=== PATIENT | male | born 1965 | race Caucasian/White ===

== ENCOUNTER 2018-06-01 18:22 | Emergency (ER) | payer MEDICARE, MEDICAID ==
[~2018-06-01] VITALS: Ht 167.6 cm; Wt 83.0 kg
[2018-06-01] MEDS ORDERED: LEVO25TA4 PO (18:34)
[2018-06-01] MEDS ORDERED: SAXA5TAB PO (18:34)
[2018-06-01] MEDS ORDERED: METO-391 PO (18:34)
[2018-06-01] MEDS ORDERED: METF-446 PO (18:34)
[2018-06-01] MEDS ORDERED: GLIP5TAB11 PO (18:34)
[2018-06-01] MEDS ORDERED: BENZ1TAB10 PO (18:34)
[2018-06-01] MEDS ORDERED: RISP3TAB44 PO (18:34)
[2018-06-01] MEDS ORDERED: SIMV40TA5 PO (18:35)
[2018-06-01] MEDS ORDERED: TRAZ150T79 PO (18:35)
[2018-06-01] MEDS ORDERED: QUET400T3 PO (18:35)
[2018-06-01 18:39] LABS: GLUCOSE,POINT OF CARE 231 MG/DL (70-110)
[2018-06-01] MEDS ORDERED: LORazepam 1 MG TABLET PO ONE (19:30)
[2018-06-01] MEDS ORDERED: DiphenhydrAMINE HCL 50 MG CAPSULE PO ONE (20:00)
[2018-06-01] MEDS ORDERED: HALOPERIDOL 5 MG TABLET PO ONE (20:00)
[2018-06-01] MEDS ORDERED: MetFORMIN HCL 500 MG TABLET PO ONE (20:00)
[2018-06-01 20:39] VITALS: BP 148/80
== END 2018-06-01 20:56 | disposition home or self-care (01) ==
LOC: EMS 18:23
DX: E11.65 Type 2 diabetes mellitus with hyperglycemia (principal); F20.9 Schizophrenia, unspecified; I10 Essential (primary) hypertension; E78.00 Pure hypercholesterolemia, unspecified; F31.9 Bipolar disorder, unspecified; F41.9 Anxiety disorder, unspecified; F17.210 Nicotine dependence, cigarettes, uncomplicated; Z76.0 Encounter for issue of repeat prescription; Z88.8 Allergy status to other drugs, medicaments and biological substances; Z79.84 Long term (current) use of oral hypoglycemic drugs

== ENCOUNTER 2022-04-17 18:00 | Emergency (ER) | payer MEDICARE, MEDICAID ==
[~2022-04-17] VITALS: Ht 167.6 cm; Wt 79.5 kg
[~2022-04-17 18:00] MED LIST: BENZ1TAB96 PO; GLIP5TAB11 PO; LEVO25TA4 PO; METF-446 PO; METO-391 PO; QUET400T5 PO; RISP3TAB44 PO; SAXA5TAB PO; SIMV-46 PO; TRAZ150T79 PO
[2022-04-17 19:28] LABS: EOSINOPHILS % (AUTO) 2.4 % (1.0-6.0); HEMATOCRIT 31.6 % (41-53); HEMOGLOBIN 10.6 g/dL (13.5-17.5); LYMPHOCYTES # (AUTO) 0.7 K/uL (1.0-4.8); LYMPHOCYTES % (AUTO) 8.6 % (22.0-44.0); MEAN CORPUSCULAR HEMOGLOBIN 29.9 pg (26.0-34.0); MEAN CORPUSCULAR HGB CONC 33.4 G/dL (31.0-37.0); MEAN CORPUSCULAR VOLUME 90 fL (80-100); MONOCYTES # (AUTO) 0.9 K/uL (0.1-1.0); MONOCYTES % (AUTO) 10.5 % (2.0-9.0); NEUTROPHILS # (AUTO) 6.5 K/uL (1.8-7.7); NEUTROPHILS % (AUTO) 77.5 % (40.0-70.0); PLATELET COUNT (AUTO) 275 K/uL (150-450); RED BLOOD CELL COUNT(AUTO) 3.53 MIL/uL (4.50-5.90)
[2022-04-17 19:35] LABS: ANION GAP 4 mmol/L (8-16); CALCIUM, TOTAL 8.7 mg/dL (8.8-10.5); CARBON DIOXIDE 27 mmol/L (22-29); CHLORIDE 106 mmol/L (98-107); CREATININE 1.27 mg/dL (0.60-1.30); GLUCOSE,RANDOM 89 mg/dL (70-110); POTASSIUM 3.9 mmol/L (3.5-5.1); SODIUM SERUM 137 mmol/L (136-145); UREA NITROGEN, BLOOD 14 mg/dL (7-18)
[2022-04-17 19:36] LABS: GLOMERULAR FILTR. RATE CALC 58 mL/min (>60)
[2022-04-17 19:41] LABS: ALANINE AMINOTRANSFERASE 16 U/L (12-78); ALBUMIN 3.4 g/dL (3.4-5.0); ALKALINE PHOSPHATASE 86 U/L (46-116); ASPARTATE AMINOTRANSFERASE 11 U/L (15-37); BILIRUBIN,TOTAL 0.1 mg/dL (0.1-1.0); TOTAL PROTEIN, SERUM 6.6 g/dL (6.4-8.2)
[2022-04-17 20:39] LABS: APPEARANCE,URINE CLEAR (CLEAR); BILIRUBIN,URINE NEGATIVE (NEGATIVE); GLUCOSE, URINE (UA) NEGATIVE (NEGATIVE); KETONES,URINE NEGATIVE (NEGATIVE); LEUKOCYTE ESTERASE ,URINE NEGATIVE (NEGATIVE); NITRATE,URINE NEGATIVE (NEGATIVE); OCCULT BLOOD,URINE NEGATIVE (NEGATIVE); PROTEIN,URINE NEGATIVE (NEGATIVE); SPECIFIC GRAVITIY, URINE 1.006 (1.003-1.030); UROBILINOGEN,URINE <=1.0 mg/dL (<=1.0)
[2022-04-17 20:45] LABS: AMPHET/METH SCREEN,URINE NEGATIVE (NEGATIVE); BARBITURATE SCREEN, URINE NEGATIVE (NEGATIVE); BENZODIAZEPINES SCREEN,URINE NEGATIVE (NEGATIVE); CANNABINOID SCREEN,URINE NEGATIVE (NEGATIVE); COCAINE SCREEN,URINE NEGATIVE (NEGATIVE); METHADONE SCREEN, URINE NEGATIVE (NEGATIVE); OPIATE SCREEN,URINE NEGATIVE (NEGATIVE); PHENCYCLIDINE SCREEN,URINE NEGATIVE (NEGATIVE)
[2022-04-17 20:46] LABS: BACTERIA,URINE None Seen /HPF (None Seen); RBC,URINE None Seen /HPF (0-2); SQUAMOUS EPITHELIAL CELL,UR Few /LPF (None Seen); WBC,URINE None Seen /HPF (0-5)
[2022-04-17 21:14] VITALS: BP 128/72
[2022-04-17] MEDS ORDERED: SODIUM CHLORIDE 0.9% 500 ML IV ONE (21:15)
== END 2022-04-17 21:30 | disposition home or self-care (01) ==
LOC: EMS 18:02
DX: E11.649 Type 2 diabetes mellitus with hypoglycemia without coma (principal); R55 Syncope and collapse; F41.9 Anxiety disorder, unspecified; F31.9 Bipolar disorder, unspecified; E78.00 Pure hypercholesterolemia, unspecified; I10 Essential (primary) hypertension; F20.9 Schizophrenia, unspecified; G31.84 Mild cognitive impairment of uncertain or unknown etiology; F17.210 Nicotine dependence, cigarettes, uncomplicated; Z86.79 Personal history of other diseases of the circulatory system; Z88.8 Allergy status to other drugs, medicaments and biological substances
CPT/HCPCS: 99284; 80053; 82962; 84484; 85025; 36415; 93005; 80307; 81001; G0480; J7040

== ENCOUNTER 2025-06-23 20:49 | Inpatient (IN) | payer MEDICARE, OTHER ==
[~2025-06-23] VITALS: Ht 170.2 cm; Wt 79.2 kg
[~2025-06-23 20:49] MED LIST changes: +BENZ-247 PO; -BENZ1TAB96 PO; -GLIP5TAB11 PO; +GLIP5TAB15 PO
[2025-06-23] MEDS ORDERED: 0.9% SODIUM CHLORIDE 10 ML SYRINGE IVP PRN (21:15)
[2025-06-23 21:34] LABS: PLATELET COUNT (AUTO) 297 K/uL (150-450); RED BLOOD CELL COUNT(AUTO) 4.78 MIL/uL (4.50-5.90); RED CELL DISTRIBUTION WIDTH 15.1 % (11.5-14.5); WHITE BLOOD COUNT (AUTO) 12.9 K/uL (4.5-11.0)
[2025-06-23 21:43] LABS: CALCIUM, TOTAL 9.0 mg/dL (8.8-10.5); CREATININE 1.51 mg/dL (0.60-1.30); GLOMERULAR FILTR. RATE CALC 47 mL/min (>60); GLUCOSE,RANDOM 319 mg/dL (70-110); SODIUM SERUM 130 mmol/L (136-145); UREA NITROGEN, BLOOD 27 mg/dL (7-18)
[2025-06-23 21:52] LABS: TROPONIN I-HIGH SENSITIVITY 5 ng/L (<76)
[2025-06-23] MEDS: ACETAMINOPHEN 1000 MG/ISO-OSM 100 ML IV ONE (21:53)
[2025-06-23] MEDS: SODIUM CHLORIDE 0.9% 2,100 ML IV ONE (21:53)
[2025-06-23 21:57] LABS: LACTIC ACID 2.7 mmol/L (0.4-2.0)
[2025-06-23 22:02] LABS: ASPARTATE AMINOTRANSFERASE 13 U/L (15-37); CREATINE KINASE, TOTAL ONLY 88 U/L (39-308); TOTAL PROTEIN, SERUM 7.3 g/dL (6.4-8.2)
[2025-06-23] MEDS: CefTRIAXone 1 GM/DEXTROSE 50 ML IV ONE (23:01)
[2025-06-23] MEDS: NICOTINE 14 MG/24 HOUR PATCH TD ONE (23:01)
[2025-06-23 23:05] LABS: COVID AG,FIA SOURCE NASAL SWAB
[2025-06-23 23:08] LABS: APPEARANCE,URINE CLEAR (CLEAR); GLUCOSE, URINE (UA) >=1000 mg/dL (NEGATIVE); LEUKOCYTE ESTERASE ,URINE NEGATIVE (NEGATIVE); NITRATE,URINE NEGATIVE (NEGATIVE); OCCULT BLOOD,URINE NEGATIVE (NEGATIVE); SPECIFIC GRAVITIY, URINE 1.025 (1.003-1.030)
[2025-06-23 23:13] LABS: SARS-COV2 (COVID) ANTIGEN,FIA Negative (Negative)
[2025-06-23 23:15] LABS: INFLUENZA TYPE A NEGATIVE FOR TYPE A (NEGATIVE); INFLUENZA TYPE B NEGATIVE FOR TYPE B (NEGATIVE)
[2025-06-23] MEDS ORDERED: HYDROCODONE/ACETAMINOPHEN 5-325 MG TABLET PO PRN (23:15)
[2025-06-23] MEDS: *CLINICAL-LEVOFLOXACIN IVPB DOSING CLINICAL ONE (23:15)
[2025-06-23] MEDS ORDERED: ONDANSETRON HCL 4 MG/2 ML VIAL IVP PRN (23:15)
[2025-06-23] MEDS ORDERED: MAGNESIUM HYDROXIDE SUSPENSION 30 ML UDCUP PO PRN (23:15)
[2025-06-23] MEDS ORDERED: MORPHINE SULFATE 4 MG/ML SYRINGE IVP PRN (23:15)
[2025-06-23] MEDS ORDERED: BISACODYL 10 MG RECTAL RECTAL SUPPOSITORY PR PRN (23:15)
[2025-06-23 23:27] LABS: SQUAMOUS EPITHELIAL CELL,UR Rare /LPF (None Seen)
[2025-06-23] MEDS: HEPARIN SODIUM,PORCINE 5,000 UNITS/ML VIAL SQ SCH (23:28)
[2025-06-23] MEDS ORDERED: DEXTROSE 50%-WATER 25 GM/50 ML SYRINGE IVP PRN (23:30)
[2025-06-24] MEDS: KETOROLAC TROMETHAMINE 30 MG/ML VIAL IVP ONE (01:03)
[2025-06-24] MEDS: SODIUM CHLORIDE 0.9% 1,000 ML IV ONE ×3 (01:03→14:08)
[2025-06-24] MEDS: LEVOFLOXACIN 750 MG/D5% WATER 150 ML IV SCH (03:11)
[2025-06-24] MEDS: SODIUM CHLORIDE 0.9% 500 ML IV ONE (04:10)
[2025-06-24] MEDS: PHENYLEPHRINE 200 MG/D5%-WATER 250 ML IV PRN (05:25)
[2025-06-24 06:55] LABS: PLATELET COUNT (AUTO) 270 K/uL (150-450); RED BLOOD CELL COUNT(AUTO) 4.25 MIL/uL (4.50-5.90); RED CELL DISTRIBUTION WIDTH 15.0 % (11.5-14.5); WHITE BLOOD COUNT (AUTO) 13.8 K/uL (4.5-11.0)
[2025-06-24 07:01] LABS: CALCIUM, TOTAL 7.5 mg/dL (8.8-10.5); CREATININE 1.29 mg/dL (0.60-1.30); GLOMERULAR FILTR. RATE CALC 57.0 mL/min (>60); GLUCOSE,RANDOM 281.0 mg/dL (70-110); SODIUM SERUM 137.0 mmol/L (136-145); UREA NITROGEN, BLOOD 24.0 mg/dL (7-18)
[2025-06-24] MEDS: LEVOTHYROXINE SODIUM 25 MCG TABLET PO SCH (07:56)
[2025-06-24] MEDS: DOCUSATE SODIUM 100 MG CAPSULE PO SCH (08:41)
[2025-06-24] MEDS: INSULIN LISPRO 100 UNITS/ML SQ PRN (09:14)
[2025-06-24 09:31] LABS: GLUCOMETER DEV NAME(LOC) ER.7; GLUCOSE,POINT OF CARE 263 MG/DL (70-110)
[2025-06-24] MEDS: PANTOPRAZOLE SODIUM 40 MG DR TABLET PO SCH (09:39)
[2025-06-24 09:48] VITALS: BP 125/57; PULSE 104; RESP 20; TEMP 97.5; O2SAT 100
[2025-06-24 12:00] VITALS: BP 122/72; PULSE 103; PULSE 105; RESP 21; TEMP 98; O2SAT 100
[2025-06-24 12:01] LABS: GLUCOMETER DEV NAME(LOC) ICU.S7; GLUCOSE,POINT OF CARE 228 MG/DL (70-110)
[2025-06-24] MEDS ORDERED: FERR325T27 PO (12:09)
[2025-06-24] MEDS ORDERED: CARV3 PO (12:09)
[2025-06-24] MEDS ORDERED: KETO15CR2 TP (12:09)
[2025-06-24] MEDS ORDERED: PANT-31 PO (12:09)
[2025-06-24] MEDS ORDERED: TRAZ150T80 PO (12:09)
[2025-06-24] MEDS ORDERED: CHLO50TA71 PO (12:09)
[2025-06-24] MEDS ORDERED: OFLO5DRO49 OS (12:09)
[2025-06-24] MEDS ORDERED: METF-1211 PO (12:09)
[2025-06-24] MEDS ORDERED: FLUV50 PO (12:09)
[2025-06-24] MEDS ORDERED: MULT-1203 PO (12:34)
[2025-06-24] MEDS ORDERED: LINA5TAB PO (12:34)
[2025-06-24] MEDS ORDERED: DAPA5TAB PO (12:34)
[2025-06-24] MEDS ORDERED: CILO100T3 PO (12:34)
[2025-06-24] MEDS ORDERED: ATOR10TA PO (12:34)
[2025-06-24] MEDS ORDERED: DOCU-385 PO (12:34)
[2025-06-24] MEDS ORDERED: ASPI-1450 PO (12:34)
[2025-06-24] MEDS ORDERED: LISI-892 PO (12:34)
[2025-06-24] MEDS ORDERED: ERGO500054 PO (12:34)
[2025-06-24] MEDS ORDERED: ICOS1CAP PO (12:34)
[2025-06-24] MEDS ORDERED: PANT20TA18 PO (13:36)
[2025-06-24 16:00] VITALS: BP 122/73; PULSE 109; RESP 11; TEMP 97.9; O2SAT 96
[2025-06-24 17:25] LABS: GLUCOMETER DEV NAME(LOC) ICU.S7; GLUCOSE,POINT OF CARE 160 MG/DL (70-110)
[2025-06-24 18:30] LABS: C.DIFF GDH ANTIGEN, Stool Negative (Negative); C.DIFF TOXINS A&B, Stool Negative (Negative)
[2025-06-24 20:00] VITALS: BP 136/101; PULSE 110; RESP 15; TEMP 98.7; O2SAT 96
[2025-06-24] MEDS ORDERED: SIMVASTATIN 40 MG TABLET PO SCH (21:00)
[2025-06-24] MEDS: ZOLPIDEM TARTRATE 5 MG TABLET PO PRN (21:32)
[2025-06-24] MEDS: SIMVASTATIN 20 MG TABLET PO SCH (21:32)
[2025-06-24 21:56] LABS: GLUCOMETER DEV NAME(LOC) ICU.S7; GLUCOSE,POINT OF CARE 151 MG/DL (70-110)
[2025-06-25] VITALS (9 sets, daily range): BP systolic 130–151; BP diastolic 71–95; PULSE 100–120; RESP 12–18; TEMP 97.8–98.5; O2SAT 93–100
[2025-06-25] MEDS: LEVOFLOXACIN 750 MG/D5% WATER 150 ML IV SCH (05:43)
[2025-06-25 06:14] LABS: PLATELET COUNT (AUTO) 248 K/uL (150-450); RED BLOOD CELL COUNT(AUTO) 4.39 MIL/uL (4.50-5.90); RED CELL DISTRIBUTION WIDTH 15.2 % (11.5-14.5); WHITE BLOOD COUNT (AUTO) 10.7 K/uL (4.5-11.0)
[2025-06-25 06:19] LABS: CALCIUM, TOTAL 8.5 mg/dL (8.8-10.5); CREATININE 0.89 mg/dL (0.60-1.30); GLOMERULAR FILTR. RATE CALC > 60 mL/min (>60); GLUCOSE,RANDOM 127 mg/dL (70-110); SODIUM SERUM 138 mmol/L (136-145); UREA NITROGEN, BLOOD 12 mg/dL (7-18)
[2025-06-25] MEDS ORDERED: SODIUM CHLORIDE 0.9% 250 ML IV ONE (08:10)
[2025-06-25] MEDS: NICOTINE 21 MG/24 HOUR PATCH TD SCH (08:18)
[2025-06-25 11:45] LABS: GLUCOMETER DEV NAME(LOC) 5S.2E; GLUCOSE,POINT OF CARE 264 MG/DL (70-110)
[2025-06-25 17:56] LABS: GLUCOMETER DEV NAME(LOC) 5S.2E; GLUCOSE,POINT OF CARE 259 MG/DL (70-110)
[2025-06-25 22:31] LABS: GLUCOMETER DEV NAME(LOC) 5N.2C; GLUCOSE,POINT OF CARE 269 MG/DL (70-110)
[2025-06-26] VITALS (11 sets, daily range): BP systolic 117–161; BP diastolic 78–99; PULSE 93–110; RESP 18–19; TEMP 97.7–99; O2SAT 92–98
[2025-06-26] MEDS ORDERED: SODIUM CHLORIDE 0.9% 250 ML IV ONE (05:18)
[2025-06-26 05:55] LABS: GLUCOMETER DEV NAME(LOC) 5N.2C; GLUCOSE,POINT OF CARE 290 MG/DL (70-110)
[2025-06-26 06:20] LABS: PLATELET COUNT (AUTO) 269 K/uL (150-450); RED BLOOD CELL COUNT(AUTO) 4.36 MIL/uL (4.50-5.90); RED CELL DISTRIBUTION WIDTH 14.9 % (11.5-14.5); WHITE BLOOD COUNT (AUTO) 7.7 K/uL (4.5-11.0)
[2025-06-26 06:43] LABS: CALCIUM, TOTAL 9.0 mg/dL (8.8-10.5); CREATININE 0.88 mg/dL (0.60-1.30); GLOMERULAR FILTR. RATE CALC > 60 mL/min (>60); GLUCOSE,RANDOM 294 mg/dL (70-110); SODIUM SERUM 134 mmol/L (136-145); UREA NITROGEN, BLOOD 12 mg/dL (7-18)
[2025-06-26 13:26] LABS: GLUCOMETER DEV NAME(LOC) 5S.2E; GLUCOSE,POINT OF CARE 270 MG/DL (70-110)
[2025-06-26 19:05] LABS: GLUCOMETER DEV NAME(LOC) 5N.2C; GLUCOSE,POINT OF CARE 265 MG/DL (70-110)
[2025-06-26 22:11] LABS: GLUCOMETER DEV NAME(LOC) 5S.2E; GLUCOSE,POINT OF CARE 304 MG/DL (70-110)
[2025-06-27] VITALS (8 sets, daily range): BP systolic 130–157; BP diastolic 85–106; PULSE 101–116; RESP 18–19; TEMP 97.7–98.4; O2SAT 96–99
[2025-06-27 06:09] LABS: PLATELET COUNT (AUTO) 308 K/uL (150-450); RED BLOOD CELL COUNT(AUTO) 4.51 MIL/uL (4.50-5.90); RED CELL DISTRIBUTION WIDTH 14.8 % (11.5-14.5); WHITE BLOOD COUNT (AUTO) 8.1 K/uL (4.5-11.0)
[2025-06-27 06:47] LABS: CALCIUM, TOTAL 9.2 mg/dL (8.8-10.5); CREATININE 1.00 mg/dL (0.60-1.30); GLOMERULAR FILTR. RATE CALC > 60 mL/min (>60); GLUCOSE,RANDOM 349 mg/dL (70-110); SODIUM SERUM 132 mmol/L (136-145); UREA NITROGEN, BLOOD 13 mg/dL (7-18)
[2025-06-27 17:26] LABS: GLUCOMETER DEV NAME(LOC) 5S.2E; GLUCOSE,POINT OF CARE 355 MG/DL (70-110)
[2025-06-27 17:31] LABS: GLUCOMETER DEV NAME(LOC) 5S.2E; GLUCOSE,POINT OF CARE 329 MG/DL (70-110)
[2025-06-27 17:31] LABS: GLUCOMETER DEV NAME(LOC) 5S.2E; GLUCOSE,POINT OF CARE 242 MG/DL (70-110)
[2025-06-28] VITALS: BP 146/103; PULSE 104; RESP 18; TEMP 97.5; O2SAT 98
[2025-06-28 05:25] LABS: GLUCOMETER DEV NAME(LOC) 5N.2C; GLUCOSE,POINT OF CARE 285 MG/DL (70-110)
[2025-06-28 06:02] VITALS: BP 143/94; PULSE 101; RESP 18; TEMP 97.5; O2SAT 97
[2025-06-28] MEDS: ACETAMINOPHEN 325 MG TABLET PO PRN (06:05)
[2025-06-28 06:25] LABS: PLATELET COUNT (AUTO) 329 K/uL (150-450); RED BLOOD CELL COUNT(AUTO) 4.99 MIL/uL (4.50-5.90); RED CELL DISTRIBUTION WIDTH 14.9 % (11.5-14.5); WHITE BLOOD COUNT (AUTO) 9.4 K/uL (4.5-11.0)
[2025-06-28 06:34] LABS: CALCIUM, TOTAL 9.1 mg/dL (8.8-10.5); CREATININE 0.86 mg/dL (0.60-1.30); GLOMERULAR FILTR. RATE CALC > 60 mL/min (>60); GLUCOSE,RANDOM 279 mg/dL (70-110); SODIUM SERUM 132 mmol/L (136-145); UREA NITROGEN, BLOOD 12 mg/dL (7-18)
[2025-06-28 06:45] LABS: GLUCOMETER DEV NAME(LOC) 5N.2C; GLUCOSE,POINT OF CARE 272 MG/DL (70-110)
[2025-06-28 07:43] VITALS: BP 149/99; PULSE 105; RESP 18; TEMP 97.5; O2SAT 96
[2025-06-28] MEDS ORDERED: LEVO-72 PO (08:32)
[2025-06-28] MEDS: METOPROLOL TARTRATE 25 MG TABLET PO SCH (09:35)
[2025-06-28 14:41] LABS: GLUCOMETER DEV NAME(LOC) 5N.1D; GLUCOSE,POINT OF CARE 242 MG/DL (70-110)
[2025-07-02] MEDS ORDERED: LEVO750T68 PO (12:31)
== END 2025-06-28 11:30 | disposition home or self-care (01) | DRG 871 ==
LOC: EMS 20:50 → EDH 23:10 → ICU 06-24 09:53 → 5N 06-25 09:30
PROVIDERS: ADMIT Internal Medicine; ATTEND Internal Medicine
DX: A41.9 Sepsis, unspecified organism (principal); G93.41 Metabolic encephalopathy; R65.21 Severe sepsis with septic shock; N17.9 Acute kidney failure, unspecified; E03.9 Hypothyroidism, unspecified; E11.65 Type 2 diabetes mellitus with hyperglycemia; I11.9 Hypertensive heart disease without heart failure; F20.9 Schizophrenia, unspecified; F41.9 Anxiety disorder, unspecified; Z20.822 Contact with and (suspected) exposure to COVID-19; F17.210 Nicotine dependence, cigarettes, uncomplicated; E78.00 Pure hypercholesterolemia, unspecified; F31.9 Bipolar disorder, unspecified; Z88.8 Allergy status to other drugs, medicaments and biological substances
CPT/HCPCS: 71045; 80048; 80076; 81001; 82550; 82962; 83605; 83880; 84145; 84443; 84484; 85025; 87040; 87081; 87324; 87449; 87804; 93005; 93970; 96365; 96367; 99291; G0378; J0131; J0696; J1630; J1644; J1815; J1885; J1956; J2370; J7030; J7050; 36415-L1; 36415-TC